=== PATIENT | male | born 1950 | race Caucasian/White ===

== ENCOUNTER 2017-12-29 17:26 | Inpatient (IN) | payer OTHER ==
[~2017-12-29] VITALS: Ht 172.7 cm; Wt 69.4 kg
[~2017-12-29 17:26] MED LIST: ACETAMINOPHEN325 M1 PO; ASPIR-TRIN325 M1 PO; BENICAR40 MG PO; CILOXAN 0.1 APPLICAT LEFT EYE; COGENTIN2 MG PO; CORTIZONE-10 PL57 GM TP; Ceftin PO; Cogentin PO; DAILY VITAMIN1 EAC8 PO; Debrox LEFT EAR; EAR WAX REMOVAL15 ML LEFT EAR; ECPIRIN325 M1 PO; Ecotrin PO; FLOMAX0.4 MG PO; GLUCOPHAGE500 MG PO; HYDRALAZINE HCL25 MG PO; LIPITOR20 MG PO; LOPRESSOR25 MG PO; MULTI-VITAMIN1 EAC4 PO; NORVASC10 MG PO; OYSTER SHELL W1 EACH PO; PROLIA60 MG/1 ML SC; RISPERDAL3 MG PO; ROBITUSSIN DM118 ML PO; TRIPLE ANTIBIO1 EAC1 TP; TUSSIN DM LIQU118 ML PO; TYLENOL REGULA325 MG PO; Theragran PO; [UNRECOGNIZED DRUG - OTHER] PO
[2017-12-29 18:08] LABS: INTER. NORMALIZED RATIO 1.1
[2017-12-29 18:10] LABS: CHLORIDE 104 mEq/L (99-109); POTASSIUM 3.7 mEq/L (3.7-5.4); SODIUM 136 mEq/L (136-147)
[2017-12-29 18:11] LABS: BASOPHIL (%) 0.4 % (0-1); EOSINOPHIL (%) 1.7 % (0-5); EOSINOPHIL COUNT 0.2 K/uL (0-0.3); HEMATOCRIT 37.7 % (38.0-50.0); IMMATURE GRANULOCYTE (%) 0.3 % (0.0-0.7); LYMPHOCYTE (%) 17.8 % (15-42); LYMPHOCYTE COUNT 1.7 K/uL (1.0-2.8); MCH 28.3 PG (29.0-34.0); MCHC 34.5 G/DL (30.0-36.0); MONOCYTE (%) 8.1 % (3-12); MONOCYTE COUNT 0.8 K/uL (0-0.8); NEUTROPHIL (%) 71.7 % (45-76); NEUTROPHIL COUNT 6.7 K/uL (1.8-6.4); PLATELET COUNT 230 K/uL (156-360); RBC DIS.WIDTH-CV 13.6 % (11.8-14.6); RBC DIS.WIDTH-SD 40.5 % (39-53); WHITE BLOOD COUNT 9.4 K/uL (4.1-10.2)
[2017-12-29 18:12] LABS: GLUCOSE 167 mg/dL (70-99)
[2017-12-29 18:16] LABS: GFR ESTIMATE (CALCULATED) > 59 mL/min/ (58.99-99999)
[2017-12-29 18:17] LABS: UREA NITROGEN (BUN) 17 mg/dL (9-23)
[2017-12-29] MEDS ORDERED: ZYRTEC10 M3 PO (19:55)
[2017-12-29] MEDS ORDERED: HALLS5.8 MG MM (19:55)
[2017-12-29] MEDS ORDERED: NORVASC10 MG PO (19:56)
[2017-12-29] MEDS ORDERED: COZAAR100 MG PO (19:56)
[2017-12-29 22:26] LABS: APPEARANCE SL.HAZY ((CLEAR)); BILIRUBIN NEGATIVE; BLOOD SMALL; COLOR YELLOW ((YELLOW)); GLUCOSE (STRIP) NEGATIVE; KETONES NEGATIVE; LEUKOCYTES TRACE; NITRITE NEGATIVE; PROTEIN (STRIP) NEGATIVE; SPECIFIC GRAVITY 1.011 (1.000-1.030); UROBILINOGEN 0.2 MG/DL (0.2-1.0)
[2017-12-29 22:41] LABS: BACTERIA NONE SEEN /HPF; EPITHELIAL CELLS NONE SEEN /HPF; MUCUS TRACE /LPF; RED BLOOD CELLS 0-5 /HPF (0-5); UCUL ADDED? NO; WHITE BLOOD CELLS 0-5 /HPF (0-5)
[2017-12-30] VITALS (7 sets, daily range): BP systolic 122–171; BP diastolic 63–82
[2017-12-30 01:23] LABS: HDL CHOLESTEROL 47 MG/DL (Desirable>=40); LDL CHOLESTEROL 32 mg/dL (Desirable<100); NON-HDL CHOLESTEROL 46 mg/dL (Desirable<160); TOTAL CHOLESTEROL 93 mg/dL (Desirable<200); TRIGLYCERIDES 68 MG/DL (Normal: <150)
[2017-12-31 03:46] VITALS: BP 116/78
[2017-12-31 07:06] VITALS: BP 123/58
[2017-12-31 11:22] VITALS: BP 114/63
[2017-12-31 12:47] LABS: HEMOGLOBIN A1c (GLYCOHEMOGLOB) 5.6 % (Below 5.7)
== END 2017-12-31 14:17 | disposition home or self-care (01) | DRG 92 ==
LOC: EME 17:26 → EDOF 20:40 → 5SOUTH 20:40 → ENRESERV 21:13 → 5SOUTH 22:14
PROVIDERS: Emergency Medicine; Hospitalist
DX: R29.810 Facial weakness (principal); I69.354 Hemiplegia and hemiparesis following cerebral infarction affecting left non-dominant side; F73 Profound intellectual disabilities; I10 Essential (primary) hypertension; E11.9 Type 2 diabetes mellitus without complications; E78.5 Hyperlipidemia, unspecified; F29 Unspecified psychosis not due to a substance or known physiological condition; M81.0 Age-related osteoporosis without current pathological fracture; Z79.82 Long term (current) use of aspirin; Z79.84 Long term (current) use of oral hypoglycemic drugs
CPT/HCPCS: 70450; 70551; 80048; 80061; 81003; 82948; 83036; 85025; 85027; 85610; 85730; 92523 GN; 93005; 99281; 99285; J1650; J2060